=== PATIENT | female | born 1935 | race Caucasian/White ===

== ENCOUNTER → 2017-08-23 | Outpatient (CLI) | payer MEDICARE ==
--- NOTE | 2017-08-23 10:09 | WOMENS IMAGING REPORT ---
EXAM DESCRIPTION: BONE DENSITY HIP/SPINE COMPLETED DATE/TIME: 08/23/2017 9:46 am REASON FOR STUDY: OSTEOPOROSIS M81.0 AGE-RELATED OSTEOPOROSIS W/O CURRENT PATHOLOGICAL FRAC COMPARISON: June 2012 TECHNIQUE: Dual-Energy X-ray Absorptiometry (DEXA) of the AP Spine and Hip. LIMITATIONS: None. FINDINGS: LUMBAR SPINE: The bone mineral density (BMD) measured from L1-L4 in the AP projection correlates with a T-score of -2.1, which is osteopenia as defined by the World Health Organization. -8.7% decrease as compared to the previous study HIP: The bone mineral density (BMD) measured in the left hip correlates with a T-score of -2.0, which is o steopenia as defined by the World Health Organization. -8.7% decrease as compared to the previous st udy. IMPRESSION: 1. LUMBAR SPINE: Osteopenia 2. HIP: Osteopenia COMMENT: The World Health Organization defines low BMD as follows: T-score: Normal: Greater than -1.0 Osteopenia: Between -1.0 and -2.5 Osteoporosis: Less than -2.5 without fractures Established osteoporosis: Less than -2.5 with fractures In general, you may wish to consider: Diagnosis Treatment Follow-up DEXA Normal BMD Prevention 2-3 years Osteopenia Prevention/Therapy 1-2 years Osteoporosis Therapy Yearly TECHNICAL DOCUMENTATION: JOB ID: [id number]- All Rights Reserved Reading location - IP/workstation name: [email or web address]
== END ==
LOC: WI 09:28
PROVIDERS: ATTEND Internal Medicine
DX: M81.0 Age-related osteoporosis without current pathological fracture (principal)
CPT/HCPCS: 77080

== ENCOUNTER 2017-10-09 05:55 | Inpatient (IN) | payer MEDICARE ==
[2017-10-09] MEDS ORDERED: FENTANYL CITRATE INJ/PF 100 MCG/2 ML AMPUL IV ONE ×2 (06:16→12:37)
--- NOTE | 2017-10-09 06:17 | ER Document Report ---
ED Fall - General Stated Complaint: LEG PAIN Time Seen by Provider: 10/09/17 06:04 Notes: 82-year-old female to the emergency department chief complaint of left leg pain. Patient states that she began having spasms in her left leg. Stood up to rub her leg and her leg gave out. Landed on her left hip. Has pain in the left hip, left femur, left knee. Unable to bear weight. Was lying on the ground all night long. Was able to get to a phone early this morning at around 5 AM to call her family. She lives in a [id number] quarters. Ambulance arrived. Had external rotation noted of the left hip with shortening. Pain is rated as minimal as long as she does not move. Denies any other injuries. Did not hit her head. Denies any neck pain. Has one prior orthopedic surgery to the right knee. Dr. Hebert was her surgeon. Pain is throbbing. Nonradiating. Located to the left hip and left knee area. No other associated signs or symptoms. TRAVEL OUTSIDE OF THE [place] IN LAST 30 DAYS: No - HPI Occurred: This evening Where: Home - Related data Allergies/Adverse Reactions: aspirin [Aspirin] Allergy (Mild, Verified 08/01/15 12:34) Rash morphine [Morphine] Allergy (Mild, Verified 08/01/15 12:34) N/V Penicillins Allergy (Mild, Verified 08/01/15 12:34) Hives Past Medical History - General Information source: Patient - Social History Smoking Status: Never Smoker Cigarette use (# per day): No Frequency of alcohol use: None Drug Abuse: None Lives with: Family Family History: Reviewed & Not Pertinent - Past Medical History Cardiac Medical History: Reports: Hx Hypercholesterolemia Denies: Hx Atrial Fibrillation, Hx Congestive Heart Failure, Hx Coronary Artery Disease, Hx Heart Attack, Hx Hypertension, Hx Peripheral Vascular Disease , Hx Pulmonary Embolism, Hx Heart Murmur Pulmonary Medical History: Reports: Hx Pneumonia - 1950's Denies: Hx Asthma, Hx Bronchitis, Hx COPD, Hx Respiratory Failure, Hx Sleep Apnea, Hx Tuberculosis Neurological Medical History: Denies: Hx Seizures Endocrine Medical History: Denies: Hx Graves' Disease, Hx Hyperthyroidism, Hx Hypothyroidism Renal/ Medical History: Denies: Hx End Stage Renal Disease, Hx Kidney Stones, Hx Ovarian Cysts, Hx Peritoneal Dialysis, Hx Pelvic Inflammatory Disease Malignancy Medical History: Denies: Hx Breast Cancer, Hx Cervical Cancer, Hx Leukemia, Hx Lung Cancer, Hx Ovarian Cancer GI Medical History: Reports: Hx Gastroesophageal Reflux Disease. Denies: Hx Crohn's Disease, Hx Hepatitis, Hx Hiatal Hernia, Hx Irritable Bowel, Hx Liver Failure, Hx Pancreatitis, Hx Ulcer Musculoskeletal Medical History: Reports Hx Arthritis - Osteoarthritis and osteoporosis, Denies Hx Fibromyalgia, Denies Hx Muscular Dystrophy Psychiatric Medical History: Denies: Hx Bipolar Disorder, Hx Depression, Hx Post Traumatic Stress Disorder , Hx Schizophrenia Traumatic Medical History: Denies: Hx Fractures Infectious Medical History: Denies: Hx Hepatitis, Hx HIV Past Surgical History: Reports: Hx Appendectomy, Hx Cholecystectomy, Hx Gastric Bypass Surgery, Hx Hysterectomy, Hx Orthopedic Surgery - Right total knee replacement, 2013, Hx Tonsillectomy. Denies: Hx Bowel Surgery, Hx Section, Hx Colostomy, Hx Coronary Artery Bypass Graft, Hx Herniorrhaphy, Hx Mastectomy, Hx Open Heart Surgery, Hx Pacemaker, Hx Tubal Ligation - Immunizations Hx Diphtheria, Pertussis, Tetanus Vaccination: Yes Hx Pneumococcal Vaccination: 03/19/07 Review of Systems - Review of Systems Notes: Constitutional: denies: Chills, Diaphoresis, Fever, Malaise, Weakness EENT: denies: Eye discharge, Blurred vision, Tearing, Double vision, Nose congestion, Nose discharge, Throat swelling, Mouth pain Cardiovascular: denies: Palpitations, Heart racing, Orthopnea, Dyspnea. denies : Chest pain Respiratory: denies: Cough, does not hurt to breathe, denies any wheezing or Shortness of breath Gastrointestinal: denies: Abdominal pain, Diarrhea, Nausea, Vomiting, Black stools Genitourinary: denies: Burning, Dysuria, Discharge, Frequency, Flank pain, Hematuria Musculoskeletal: Denies any head or neck pain. Pain in the left hip is present. Pain in the left knee is present. Hematologic/Lymphatic: denies: Anemia, Easy bleeding, Easy bruising, Blood clots Neurological/Psychological: denies: Confusion, Dementia, Depression, Loss of consciousness Physical Exam - Vital signs Vitals: Temp Pulse Resp BP Pulse Ox 97.7 F 64 20 147/65 H 99 10/09/17 06:01 10/09/17 06:01 10/09/17 06:01 10/09/17 06:01 10/09/17 06:01 Interpretation: Normal - General General appearance: Appears well, Alert - HEENT Head: Normocephalic, Atraumatic Eyes: Normal Pupils: PERRL - Respiratory Respiratory status: No respiratory distress Chest status: Nontender Breath sounds: Normal Chest palpation: Normal - Cardiovascular Rhythm: Regular Heart sounds: Normal auscultation Murmur: No - Abdominal Inspection: Normal Distension: No distension Bowel sounds: Normal Tenderness: Nontender Organomegaly: No organomegaly - Back Back: Normal, Nontender - Extremities General upper extremity: Normal inspection, Nontender, Normal color, Normal ROM , Normal temperature General lower extremity: Other - There is external rotation noted to the left lower extremity with mild limp shortening of the left lower extremity with tenderness to palpation at the left hip and left knee. Shoulder: Normal Arm: Normal Ankle: Normal Foot: Normal - Neurological Neuro grossly intact: Yes Cognition: Normal Orientation: AAOx4 Cathy Coma Scale Eye Opening: Spontaneous Boyden Coma Scale Verbal: Oriented Boyden Coma Scale Motor: Obeys Commands Boyden Coma Scale Total: 15 Speech: Normal Motor strength normal: LUE, RUE, LLE, RLE Sensory: Normal - Psychological Associated symptoms: Normal affect, Normal mood - Skin Skin Temperature: Warm Skin Moisture: Dry Skin Color: Normal, Other - There is purplish discoloration noted to the bilateral feet which apparently is chronic Course - Re-evaluation Re-evalutation: 10/09/17 06:29 Concern at this time for possible hip fracture versus dislocation. X-rays ordered. Pain meds ordered. Preop labs and EKG ordered. 10/09/17 07:[address] Renteria with orthopedics. He would like for the hospitalist service to admit patient based on her age. He does do this particular surgery and thinks that he will be able to see her later today if not operated on on her today then may be tomorrow. Waiting on a callback from the hospitalist at this time. 10/09/17 08:40 Laboratory 10/09/17 10/09/17 10/09/17 07:02 07:02 07:02 WBC 9.0 RBC 3.85 Hgb 11.9 L Hct 34.8 L MCV 91 MCH 31.1 MCHC 34.3 RDW 13.9 Plt Count 263 Seg Neutrophils % 88.9 H Lymphocytes % 5.9 L Monocytes % 5.0 Eosinophils % 0.0 Basophils % 0.2 Absolute Neutrophils 8.0 Absolute Lymphocytes 0.5 Absolute Monocytes 0.5 Absolute Eosinophils 0.0 Absolute Basophils 0.0 PT 14.4 INR 1.06 APTT 26.3 Sodium 144.0 Potassium 4.3 Chloride 110 H Carbon Dioxide 25 Anion Gap 9 BUN 26 H Creatinine 0.65 Est GFR ( Amer) > 60 Est GFR (Non-Af Amer) > 60 Glucose 147 H Calcium 9.0 Total Bilirubin 1.0 Direct Bilirubin 0.1 Neonat Total Bilirubin Not Reportable Neonat Direct Bilirubin Not Reportable Neonat Indirect Bili Not Reportable AST 29 ALT 22 Alkaline Phosphatase 107 Creatine Kinase 69 Total Protein 6.9 Albumin 4.0 Hip X-Ray 10/09/17 06:15 IMPRESSION: 1. Acute comminuted mildly displaced intertrochanteric fracture of the left femur. 2010 [employer]- All Rights Reserved Knee X-Ray 10/09/17 06:15 IMPRESSION: No acute fracture or dislocation. 2010 [employer]- All Rights Reserved - Vital Signs Vital signs: Temp Pulse Resp BP Pulse Ox 97.7 F 64 20 147/65 H 99 10/09/17 06:01 10/09/17 06:01 10/09/17 06:01 10/09/17 06:01 10/09/17 06:01 - Laboratory Result Diagrams: 10/09/17 07:02 10/09/17 07:02 Laboratory results interpreted by id: 10/09/17 10/09/17 07:02 07:02 Hgb 11.9 L Hct 34.8 L Seg Neutrophils % 88.9 H Lymphocytes % 5.9 L Chloride 110 H BUN 26 H Glucose 147 H - EKG Interpretation by Vt EKG shows normal: Sinus rhythm, Intervals, QRS Complexes, ST-T Waves [place]/QRS: Left axis deviation Voltage: Consistant with LVH Discharge - Discharge Clinical Impression: Intertrochanteric fracture of left hip Qualifiers: Encounter type: initial encounter Fracture type: closed Fracture alignment: displaced Qualified Code(s): S72.142A - Displaced intertrochanteric fracture of left femur, initial encounter for closed fracture Condition: Good Disposition: ADMITTED INPATIENT Admitting Provider: [facility] Alisa Gilliam Unit Admitted: Surgical Floor Referrals: JOSEPH SUMMERS MD [Primary Care Provider] - Follow up as needed
--- NOTE | 2017-10-09 07:12 | RADIOLOGY REPORT (SQ) ---
EXAM DESCRIPTION: XR HIP 2 OR MORE VIEWS COMPLETED DATE/TME: 10/09/2017 06:15 CLINICAL HISTORY: 82 years, Female, fall, deformity COMPARISON: None. FINDINGS: Single view of the pelvis with 2 views of the left hip. Acute comminuted mildly displaced intertrochanteric fracture of the left femur. Osteopenia. Right hip demonstrates no acute abnormalities. Pelvis is intact. Visualized pelvic soft tissues are unremarkable. IMPRESSION: 1. Acute comminuted mildly displaced intertrochanteric fracture of the left femur. 2011 [employer]- All Rights Reserved
[2017-10-09 07:16] LABS: ABSOLUTE LYMPHOCYTES (AUTO) 0.5 10^3/uL (0.5-4.7); ABSOLUTE MONOCYTES (AUTO) 0.5 10^3/uL (0.1-1.4); BASOPHILS % (AUTO) 0.2 % (0-2); HEMATOCRIT 34.8 % (36.0-47.0); HEMOGLOBIN 11.9 g/dL (12.0-15.5); LYMPHOCYTES % (AUTO) 5.9 % (13-45); MEAN CORPUSCULAR HEMOGLOBIN 31.1 pg (27.0-33.4); MEAN CORPUSCULAR HGB CONC 34.3 g/dL (32.0-36.0); MEAN CORPUSCULAR VOLUME 91 fl (80-97); PLATELET COUNT 263 10^3/uL (150-450); RED BLOOD COUNT 3.85 10^6/uL (3.72-5.28); RED CELL DISTRIBUTION WIDTH 13.9 % (11.5-14.0); SEGMENTED NEUTROPHILS % (AUTO) 88.9 % (42-78); TOTAL CELLS COUNTED % (AUTO) 100 %
--- NOTE | 2017-10-09 07:17 | RADIOLOGY REPORT (SQ) ---
EXAM DESCRIPTION: XR KNEE 1-2 VIEWS COMPLETED DATE/TME: 10/09/2017 06:15 CLINICAL HISTORY: 82 years, Female, fall, deformity COMPARISON: None. FINDINGS: 2 views of the left knee. No acute fracture or dislocation. Severe 3 compartment joint space narrowing and marginal osteophytosis. No definite joint effusion. Atherosclerotic vascular calcification. IMPRESSION: No acute fracture or dislocation. 2010 [employer]- All Rights Reserved
[2017-10-09 07:25] LABS: INTERNATIONAL RATION (INR) 1.06; PARTIAL THROMBOPLASTIN TIME 26.3 SEC (23.5-35.8); PROTHROMBIN TIME 14.4 SEC (11.4-15.4)
[2017-10-09 07:35] LABS: ALANINE AMINOTRANSFERASE 22 U/L (9-52); ALKALINE PHOSPHATASE 107 U/L (38-126); ANION GAP 9 (5-19); ASPARTATE AMINO TRANSFERASE 29 U/L (14-36); BILIRUBIN,DIRECT 0.1 mg/dL (0.0-0.4); BLOOD UREA NITROGEN 26 mg/dL (7-20); CARBON DIOXIDE 25 mmol/L (22-30); CHLORIDE 110 mmol/L (98-107); CREATINE KINASE 69 U/L (30-135); GLUCOSE 147 mg/dL (75-110); POTASSIUM 4.3 mmol/L (3.6-5.0); TOTAL PROTEIN 6.9 g/dL (6.3-8.2)
--- NOTE | 2017-10-09 08:00 | EKG REPORT ---
SEVERITY:- ABNORMAL ECG - SINUS RHYTHM FIRST DEGREE AV BLOCK LEFT VENTRICULAR HYPERTROPHY : Confirmed by: Lida Nuno MD 09-Oct-2017 07:59:12
--- NOTE | 2017-10-09 08:18 | PDOC CONSULTATION ---
History of Present Illness Admission Date/PCP: JOSEPH SUMMERS MD Patient complains of: Left hip pain History of Present Illness: ROBERT DESAI is a 82 year old female who sustained a fall this morning while she was walking around. She states she will can from sleep with cramps in her legs and was attempting to walk them out when she unfortunately tripped and fell onto her left hip. Patient had been brought into the emergency room due to the inability to weight-bear. Patient states pain is worse with motion. Denies numbness or tingling. Pain 8/10. Past Medical History Cardiac Medical History: Reports: Hyperlipidema Denies: Atrial Fibrillation, Congestive Heart Failure, Coronary Artery Disease, Myocardial Infarction, Hypertension, Peripheral Vascular Disease, Pulmonary Embolism, Heart Murmur Pulmonary Medical History: Reports: Pneumonia - 1950s Denies: Asthma, Bronchitis, Chronic Obstructive Pulmonary Disease (COPD), Respiratory Failure, Sleep Apnea, Tuberculosis Neurological Medical History: Denies: Seizures Endocrine Medical History: Denies: Hyperthyroidism, Hypothyroidism Renal/ Medical History: Denies: End Stage Renal Disease Malignancy Medical History: Denies: Breast Cancer, Cervical Cancer, Leukemia, Lung Cancer, Ovarian Cancer GI Medical History: Reports: Gastroesophageal Reflux Disease Denies: Crohn's Disease, Hepatitis, Hiatal Hernia Musculoskeltal Medical History: Reports: Arthritis - Osteoarthritis and osteoporosis Denies: Fibromyalgia Psychiatric Medical History: Denies: Bipolar Disorder, Depression, Post Traumatic Stress Disorder Hematology: Denies: Anemia, Hemophilia, Sickle Cell Disease Infectious Medical History: Denies: HIV Past Surgical History Past Surgical History: Reports: Appendectomy, Cholecystectomy, Gastric Bypass Surgery, Hysterectomy, Orthopedic Surgery - Right total knee replacement, 2013, Tonsillectomy Denies: Amputation, Section, Colostomy, Coronary Artery Bypass Graft , Herniorrhaphy, Mastectomy, Pacemaker, Tubal Ligation Social History Lives with: Family Smoking Status: Never Smoker Hx Prescription Drug Abuse: No Family History Family History: Reviewed & Not Pertinent Parental Family History Reviewed: No Children Family History Reviewed: No Sibling(s) Family History Reviewed.: No Medication/Allergy Home Medications: Calcium Carb/Vit D3/Minerals [Caltrate 600+D Plus Tab Chew] 1 each PO 03/03/11 Multivitamins W-Minerals/Lut [Centrum Silver Tablet] 1 each PO 03/03/11 Omeprazole [Prilosec] 40 mg PO PRN 03/03/11 Simvastatin [Zocor] 20 mg PO QHS 03/03/11 Tramadol HCl/Acetaminophen [Ultracet Tablet] 1 each PO PRN 03/03/11 Oxycodone HCl [Oxycodone HCl 10 MG Tablet] 10 mg PO Q6H PRN 03/28/12 Rivaroxaban [Xarelto 10 mg Tablet] 10 mg PO QHS 03/28/12 Allergies/Adverse Reactions: aspirin [Aspirin] Allergy (Mild, Verified 08/01/15 12:34) Rash morphine [Morphine] Allergy (Mild, Verified 08/01/15 12:34) N/V Penicillins Allergy (Mild, Verified 08/01/15 12:34) Hives Review of Systems Constitutional: ABSENT: chills, fever(s), headache(s), weight gain, weight loss Eyes: ABSENT: visual disturbances Ears: ABSENT: hearing changes Cardiovascular: ABSENT: chest pain, dyspnea on exertion, edema, orthropnea, palpitations Respiratory: ABSENT: cough, hemoptysis Gastrointestinal: ABSENT: abdominal pain, constipation, diarrhea, hematemesis, hematochezia, nausea, vomiting Genitourinary: ABSENT: dysuria, hematuria Musculoskeletal: PRESENT: as per HPI Integumentary: ABSENT: rash, wounds Neurological: ABSENT: abnormal gait, abnormal speech, confusion, dizziness, focal weakness, syncope Psychiatric: ABSENT: anxiety, depression, homidical ideation, suicidal ideation Endocrine: ABSENT: cold intolerance, heat intolerance, menstrual abnormalities, polydipsia, polyuria Hematologic/Lymphatic: ABSENT: easy bleeding, easy bruising, lymphadenopathy Physical Exam Vital Signs: Temp Pulse Resp BP Pulse Ox 97.7 F 64 20 147/65 H 99 10/09/17 06:01 10/09/17 06:01 10/09/17 06:01 10/09/17 06:01 10/09/17 06:01 Intake & Output 10/08/17 10/09/17 10/10/17 06:59 06:59 06:59 Weight 86.183 kg General appearance: PRESENT: no acute distress, well-developed, well-nourished Head exam: PRESENT: atraumatic, normocephalic Eye exam: PRESENT: conjunctiva pink, EOMI, PERRLA. ABSENT: scleral icterus Ear exam: PRESENT: normal external ear exam Mouth exam: PRESENT: moist, tongue midline Neck exam: PRESENT: full ROM. ABSENT: carotid bruit, JVD, lymphadenopathy, thyromegaly Cardiovascular exam: PRESENT: RRR. ABSENT: diastolic murmur, rubs, systolic murmur Pulses: PRESENT: normal dorsalis pedis pul, +2 pedal pulses bilateral Vascular exam: PRESENT: normal capillary refill GI/Abdominal exam: PRESENT: normal bowel sounds, soft. ABSENT: distended, guarding, mass, organolmegaly, rebound, tenderness Rectal exam: PRESENT: deferred Musculoskeletal exam: PRESENT: other - Left lower extremity: Shortened externally rotated. Positive logroll. No evidence of open wound. Intact plantar flexion/dorsiflexion. No sensory deficits. Dorsalis pedis pulse 2+. Stasis dermatitis. Neurological exam: PRESENT: alert, awake, oriented to person, oriented to place , oriented to time, oriented to situation, CN II-XII grossly intact. ABSENT: motor sensory deficit Psychiatric exam: PRESENT: appropriate affect, normal mood. ABSENT: homicidal ideation, suicidal ideation Skin exam: PRESENT: dry, intact, warm. ABSENT: cyanosis, rash Results Laboratory Results: 10/09/17 07:02 10/09/17 07:02 10/09/17 10/09/17 07:02 07:02 WBC 9.0 RBC 3.85 Hgb 11.9 L Hct 34.8 L MCV 91 MCH 31.1 MCHC 34.3 RDW 13.9 Plt Count 263 Seg Neutrophils % 88.9 H Lymphocytes % 5.9 L Monocytes % 5.0 Eosinophils % 0.0 Basophils % 0.2 Absolute Neutrophils 8.0 Absolute Lymphocytes 0.5 Absolute Monocytes 0.5 Absolute Eosinophils 0.0 Absolute Basophils 0.0 Sodium 144.0 Potassium 4.3 Chloride 110 H Carbon Dioxide 25 Anion Gap 9 BUN 26 H Creatinine 0.65 Est GFR ( Amer) > 60 Est GFR (Non-Af Amer) > 60 Glucose 147 H Calcium 9.0 Total Bilirubin 1.0 AST 29 ALT 22 Alkaline Phosphatase 107 Total Protein 6.9 Albumin 4.0 10/09/17 07:02 Creatine Kinase 69 Impressions: Hip X-Ray 10/09/17 06:15 IMPRESSION: 1. Acute comminuted mildly displaced intertrochanteric fracture of the left femur. 2010 [employer]- All Rights Reserved Knee X-Ray 10/09/17 06:15 IMPRESSION: No acute fracture or dislocation. 2010 [employer]- All Rights Reserved Status: Image reviewed by me - I have reviewed patient's radiographs of the left hip and knee. Left hip demonstrates comminuted intertrochanteric hip fracture with varus angulation. Advanced generative changes of the left knee also noted no evidence of acute abnormality Assessment & Plan - Diagnosis (1) Fracture, intertrochanteric, left femur Qualifiers: Encounter type: initial encounter Fracture type: closed Fracture alignment: displaced Qualified Code(s): S72.142A - Displaced intertrochanteric fracture of left femur, initial encounter for closed fracture Is this a current diagnosis for this admission?: Yes Plan: Patient sustained a left intertrochanteric fracture. Today we discussed treatment options including operative versus nonoperative intervention. Given the fact patient is a community ambulator with good mentation I have recommended operative intervention. Plan will be to proceed with operative treatment versus pending medical optimization. Risks include anesthetic complications, excessive bleeding, infection, injury to surrounding nerves, vessels and tendons, bruising, healing difficulties, scar formation, posttraumatic arthritis and any unforseen complication. Patient has verbalized understanding consented for the procedure.
[2017-10-09] MEDS ORDERED: RINGERS SOLUTION,LACTATED 1,000 ML IV PRN (09:59)
[2017-10-09] MEDS ORDERED: DEXTROSE 40% GEL 15 GM TUBE PO PRN ×2 (09:59)
[2017-10-09] MEDS ORDERED: GLUCAGON,HUMAN RECOMB 1 MG INJ SUBCUT PRN (09:59)
[2017-10-09] MEDS ORDERED: DEXTROSE 50%-WATER 25 GM/50 ML DISP.SYRIN IV PRN ×2 (09:59)
[2017-10-09] MEDS ORDERED: SUCCINYLCHOLINE CHLORIDE INJ 200 MG/10 ML VIAL ONE (10:23)
--- NOTE | 2017-10-09 10:54 | RADIOLOGY REPORT (SQ) ---
EXAM DESCRIPTION: CHEST SINGLE VIEW COMPLETED DATE/TIME: 10/09/2017 10:35 am REASON FOR STUDY: pre-op COMPARISON: February 2012 EXAM PARAMETERS: NUMBER OF VIEWS: One view. TECHNIQUE: Single frontal radiographic view of the chest acquired. RADIATION DOSE: NA LIMITATIONS: None. FINDINGS: LUNGS AND PLEURA: No opacities, masses or pneumothorax. No pleural effusion. Stable pulmo nary nodule is identified projected in the left mid lung field. MEDIASTINUM AND HILAR STRUCTURES: No masses. Contour normal. HEART AND VASCULAR STRUCTURES: Cardiac silhouette is enlarged. BONES: No acute findings. HARDWARE: None in the chest. OTHER: No other significant finding. IMPRESSION: Cardiomegaly. No acute consolidations are identified. Other findings as noted above TECHNICAL DOCUMENTATION: JOB ID: [id number] [employer]- All Rights Reserved Reading location - IP/workstation name: [email or web address]
[2017-10-09 11:37] LABS: CREATINE KINASE MB 1.14 ng/mL (<4.55)
[2017-10-09 11:38] LABS: TROPONIN I < 0.012 ng/mL
--- NOTE | 2017-10-09 13:08 | Progress Note ---
Provider Note Provider Note: Hospitalist consulted by Orthopedic Surgeon, Dr. Renteria, for surgical clearance. The patient has no PMH other than HLD (on statin) and GERD (on prevacid). EKG shows NSR, no acute ischemia or infarction Cardiac enzymes normal BNP 524 Coags normal No significant abnormalities on Chemistry or CBC CXR only shows mild cardiomegaly, no other pathology Vital signs are all within normal range At this time, the patient does not require any further pre-op workup. She is cleared for surgery. There are no medical issues for the hospitalist to manage. Discussed this with Dr. Renteria. If post-op issues arise, the hospitalist service will be happy to collaborate.
[2017-10-09] MEDS: FENTANYL CITRATE INJ/PF 100 MCG/2 ML AMPUL IV PRN (15:27)
--- NOTE | 2017-10-09 16:25 | XCELERA REPORT ---
[address] [address] Transthoracic Echocardiogram Report Name: ROBERT DESAI Age: 82 yrs Gender: Female : 1935 Patient Status: Inpatient Patient Location: [address] [place] [address] Study Date: 10/09/2017 03:29 PM Procedure: A complete two-dimensional transthoracic echocardiogram was performed (2D, M-mode, spectral and color flow Doppler). The study was technically difficult with many images being suboptimal in quality. Reason For Study: preop of per Dr. Mejia Ordering Physician: SYLVIE DEWITT Performed By: Sindy Gilliland Interpretation Summary The left ventricular ejection fraction is normal. There is mild concentric left ventricular hypertrophy. The left ventricle is grossly normal size. Doppler measurements suggest pseudonormalized left ventricular relaxation, which is associated with grade II/IV or mild to moderate diastolic dysfunction Wall motion cannot be accurately commented on, but no definite regional wall motion abnormalities noted. The right ventricle is grossly normal size. The right ventricular systolic function is normal. There is no mitral valve stenosis. There is a trace amount of mitral regurgitation There is mild aortic stenosis There is a peak gradient of 16-20 mm of Hg. No aortic regurgitation is present. There is no tricuspid stenosis. There is a trace or physiologic amount of tricuspid regurgitation Tricuspid regurgitation jet envelope not well defined to measure RV systolic pressure accurately. The aortic root is not well visualized but is probably normal size. The inferior vena cava was not well visualized There is no pericardial effusion. MMode/2D Measurements & Calculations RVDd: 3.3 cm LVIDd: 4.6 cm FS: 40.1 % Ao root diam: 2.7 cm IVSd: 1.1 cm LVIDs: 2.8 cm EDV(Teich): 98.5 ml Ao root area: 5.7 cm2 LVPWd: 1.0 cm ESV(Teich): 28.8 ml LA dimension: 4.1 cm EF(Teich): 70.8 % LVOT diam: 1.8 cm LVOT area: 2.6 cm2 Doppler Measurements & Calculations MV E max vianey: MV P1/2t max vianey: Ao V2 max: LV V1 max P.6 cm/sec 107.6 cm/sec 197.8 cm/sec 5.4 mmHg MV A max vianey: MV P1/2t: 83.9 msec Ao max PG: LV V1 mean P.2 cm/sec 15.7 mmHg 3.2 mmHg MV E/A: 0.89 MVA(P1/2t): 2.6 cm2 Ao V2 mean: LV V1 max: MV dec slope: 148.8 cm/sec 116.0 cm/sec 375.8 cm/sec2 Ao mean PG: LV V1 mean: MV dec time: 0.25 sec 9.8 mmHg 84.3 cm/sec Ao V2 VTI: 45.6 cmLV V1 VTI: 27.9 cm LEI(I,D): 1.6 cm2 LEI(V,D): 1.5 cm2 SV(LVOT): 72.6 ml PA V2 max: TR max vianey: 133.8 cm/sec 239.5 cm/sec PA max P.2 mmHg TR max P.9 mmHg Left Ventricle The left ventricle is grossly normal size. There is mild concentric left ventricular hypertrophy. The left ventricular ejection fraction is normal. Doppler measurements suggest pseudonormalized left ventricular relaxation, which is associated with grade II/IV or mild to moderate diastolic dysfunction. Wall motion cannot be accurately commented on, but no definite regional wall motion abnormalities noted. Right Ventricle The right ventricle is grossly normal size. There is normal right ventricular wall thickness. The right ventricular systolic function is normal. Atria The right atrium is normal in size. The left atrium is mildly dilated. Interarterial septum not well visualized and not well dopplered. Cannot comment on ASD/PFO presence. Mitral Valve The mitral valve is grossly normal. There is no mitral valve stenosis. There is a trace amount of mitral regurgitation. Aortic Valve The aortic valve is not well visualized secondary to technical limitations. There is mild aortic stenosis. There is a peak gradient of 16-20 mm of Hg. No aortic regurgitation is present. Tricuspid Valve The tricuspid valve is not well visualized secondary to technical limitations. There is no tricuspid stenosis. There is a trace or physiologic amount of tricuspid regurgitation. Tricuspid regurgitation jet envelope not well defined to measure RV systolic pressure accurately. Pulmonic Valve The pulmonic valve is not well visualized. Great Vessels The aortic root is not well visualized but is probably normal size. The inferior vena cava was not well visualized. Effusions There is no pericardial effusion. : SYLVIE DEWITT > Wilfred Mejia
[2017-10-09] MEDS ORDERED: CLINDAMYCIN 600 MG/D5W RTU 600 MG/50 ML RTUPB IV ONE (16:54)
[2017-10-09] MEDS ORDERED: FENTANYL CITRATE INJ/PF 100 MCG/2 ML AMPUL ONE (17:02)
[2017-10-09] MEDS ORDERED: MIDAZOLAM 2 MG/2 ML INJ ONE (17:02)
[2017-10-09] MEDS ORDERED: PROPOFOL INJ 200 MG/20 ML VIAL IV ONE ×2 (17:03→17:13)
[2017-10-09] MEDS ORDERED: HYDROMORPHONE HCL INJ/PF 2 MG/ML AMPULE ONE (17:03)
[2017-10-09] MEDS ORDERED: KETAMINE HCL INJ 500 MG/10 ML VIAL ONE (17:04)
[2017-10-09] MEDS ORDERED: SUGAMMADEX SODIUM 200 MG/2 ML SDV IV ONE (17:04)
[2017-10-09] MEDS ORDERED: ACETAMINOPHEN 1,000 MG/100 ML RTUPB IV ONE (17:04)
--- NOTE | 2017-10-09 17:22 | PDOC H&P ---
History of Present Illness Admission Date/PCP: 10/09/17 09:03 JOSEPH SUMMERS MD Patient complains of: L HIP PAIN History of Present Illness: ROBERT DESAI is a 82 year old female who presented to the emergency department following a mechanical fall. Patient reports she was experiencing a LLE cramp last night. She was attempting to "walk it off" when she experienced a mechanical fall and landed on her left hip. She denies head trauma or LOC. Denies dizziness prior to falling. The patient was unable to stand after she fell, and she remained on the ground for an unknown amount of time ( approximately 6 hours). She was able to crawl to the phone and call her daughter , who then called EMS. PMH includes hyperlipidemia and GERD Upon presentation to [facility] the patient's complained of LLE pain. X-ray of the left hip demonstrates acute comminuted mildly displaced intertrochanteric fracture of the left femur. Orthopedic surgery was consulted. Her pain was treated with IV fentanyl. Upon assessment, the patient is awake, alert and oriented. She is comfortably resting in bed on room air. She endorses 3/5 LLE pain, but states that it is tolerable. The patient has no other complaints, she denies headache or neck pain, chest or back pain, dizziness or blurry vision. The patient's LLE is externally rotated and shortened. +2 DP and PT pulses. No edema to the LLE. Mild discoloration to bilateral lower extremities consistent with peripheral vascular disease. EKG demonstrates NSR, no evidence of acute infarct or ischemia. Troponin<0.012. CK 69. BNP 579. CXR demonstrates enlarged cardiac silhouette, positive for cardiomegaly. Admit to hospitalist service for medical management, orthopedic surgery consulted for surgical repair of left hip. Past Medical History Cardiac Medical History: Reports: Hyperlipidema Denies: Atrial Fibrillation, Congestive Heart Failure, Coronary Artery Disease, Myocardial Infarction, Hypertension, Peripheral Vascular Disease, Pulmonary Embolism, Heart Murmur Pulmonary Medical History: Reports: Pneumonia - 1950's Denies: Asthma, Bronchitis, Chronic Obstructive Pulmonary Disease (COPD), Respiratory Failure, Sleep Apnea, Tuberculosis Neurological Medical History: Denies: Seizures Endocrine Medical History: Denies: Hyperthyroidism, Hypothyroidism Renal/ Medical History: Denies: End Stage Renal Disease Malignancy Medical History: Denies: Breast Cancer, Cervical Cancer, Leukemia, Lung Cancer, Ovarian Cancer GI Medical History: Reports: Gastroesophageal Reflux Disease Denies: Crohn's Disease, Hepatitis, Hiatal Hernia Musculoskeltal Medical History: Reports: Arthritis - Osteoarthritis and osteoporosis Denies: Fibromyalgia Psychiatric Medical History: Denies: Bipolar Disorder, Depression, Post Traumatic Stress Disorder Hematology: Denies: Anemia, Hemophilia, Sickle Cell Disease Infectious Medical History: Denies: HIV Past Surgical History Past Surgical History: Reports: Appendectomy, Cholecystectomy, Gastric Bypass Surgery, Hysterectomy, Orthopedic Surgery - Right total knee replacement, 2013 L elbow fracture repair Social History Information Source: Patient Lives with: Family Smoking Status: Former Smoker Last Time Smoked: 50 YEARS AGO Frequency of Alcohol Use: Rare Hx Recreational Drug Use: No Hx Prescription Drug Abuse: No - Advance Directive Resuscitation Status: Full Code Family History Family History: Reviewed & Not Pertinent Parental Family History Reviewed: No Children Family History Reviewed: No Sibling(s) Family History Reviewed.: No Medication/Allergy Home Medications: Multivitamins W-Minerals/Lut [Centrum Silver Tablet] 1 each PO DAILY 03/03/11 Simvastatin [Zocor] 20 mg PO QHS 03/03/11 Cetirizine HCl [Zyrtec] 10 mg PO DAILY 10/09/17 Naproxen Sod/Diphenhydramine [Aleve Pm Caplet] 1 each PO HSP PRN 10/09/17 Omeprazole 20 mg PO DAILY 10/09/17 Tramadol HCl [Ultram 50 mg Tablet] 50 mg PO Q8HP PRN 10/09/17 Vit A/C/E/Zinc/Selenium/Copper [Vision Formula Tablet] 1 each PO DAILY 10/09/17 Allergies/Adverse Reactions: aspirin [Aspirin] Allergy (Mild, Verified 08/01/15 12:34) Rash morphine [Morphine] Allergy (Mild, Verified 08/01/15 12:34) N/V Penicillins Allergy (Mild, Verified 08/01/15 12:34) Hives Review of Systems All systems: reviewed and no additional remarkable complaints except as stated Physical Exam Vital Signs: Temp Pulse Resp BP Pulse Ox 98.1 F 73 14 137/61 H 100 10/09/17 14:01 10/09/17 14:01 10/09/17 14:01 10/09/17 14:01 10/09/17 14:01 General appearance: PRESENT: no acute distress Eye exam: PRESENT: conjunctiva pink Mouth exam: PRESENT: moist Neck exam: PRESENT: full ROM Respiratory exam: PRESENT: clear to auscultation donna, symmetrical, unlabored Cardiovascular exam: PRESENT: +S1, +S2 Pulses: PRESENT: normal radial pulses, normal dorsalis pedis pul Vascular exam: PRESENT: normal capillary refill GI/Abdominal exam: PRESENT: normal bowel sounds, soft. ABSENT: tenderness Rectal exam: PRESENT: deferred Extremities exam: PRESENT: other - LLE external rotation and shortening. ABSENT : full ROM Musculoskeletal exam: ABSENT: ambulatory, full ROM Neurological exam: PRESENT: alert, awake, oriented to person, oriented to place , oriented to time, oriented to situation Psychiatric exam: PRESENT: appropriate affect Skin exam: PRESENT: dry, intact, normal color Results Laboratory Results: 10/09/17 10:50 Blood Type A POSITIVE Antibody Screen NEGATIVE 10/09/17 10/09/17 10:50 10:50 Creatine Kinase 113 CK-MB (CK-2) 1.14 Troponin I < 0.012 Impressions: Chest X-Ray 10/09/17 00:00 IMPRESSION: Cardiomegaly. No acute consolidations are identified. Other findings as noted above Hip X-Ray 10/09/17 06:15 IMPRESSION: 1. Acute comminuted mildly displaced intertrochanteric fracture of the left femur. 2010 [employer]- All Rights Reserved Knee X-Ray 10/09/17 06:15 IMPRESSION: No acute fracture or dislocation. 2010 [employer]- All Rights Reserved Status: Imported from PACS Assessment & Plan - Diagnosis (1) Fracture, intertrochanteric, left femur Qualifiers: Encounter type: initial encounter Fracture type: closed Fracture alignment: displaced Qualified Code(s): S72.142A - Displaced intertrochanteric fracture of left femur, initial encounter for closed fracture Is this a current diagnosis for this admission?: Yes Plan: Mechanical fall at home. Patient denies LOC. X-ray left hip demonstrates acute comminuted mildly displaced intertrochanteric fracture of the left femur Orthopedic surgery consulted, plan for surgery within 24 hours As needed fentanyl for pain control (allergy to morphine) Awaiting ECHOcardiogram to complete preop workup Will require PT/OT and acute rehab following surgery (2) HLD (hyperlipidemia) Qualifiers: Hyperlipidemia type: unspecified Qualified Code(s): E78.5 - Hyperlipidemia , unspecified Is this a current diagnosis for this admission?: Yes Plan: History of hyperlipidemia Continue home dose atorvastatin (3) Cardiomegaly Is this a current diagnosis for this admission?: Yes Plan: Patient denies history of heart disease Cardiomegaly seen on CXR Plan for echocardiogram for pre-op clearance - Time Time Spent: 30 to 50 Minutes Medications reviewed and adjusted accordingly: Yes Anticipated discharge: SNF - Inpatient Certification Based on my medical assessment, after consideration of the patient's comorbidities, presenting symptoms, or acuity I expect that the services needed warrant INPATIENT care.: Yes I certify that my determination is in accordance with my understanding of Medicare's requirements for reasonable and necessary INPATIENT services [42 CFR 412.3e].: Yes Medical Necessity: Need for Surgery, Risk of Complication if Not Cared For in Hospital - Plan Summary Plan Summary: ADMIT FOR L HIP REPAIR BY ORTHO SURGERY
[2017-10-09] MEDS ORDERED: FENTANYL CITRATE INJ/PF 100 MCG/2 ML AMPUL IV PRN ×3 (18:33)
[2017-10-09] MEDS ORDERED: PROMETHAZINE HCL INJ 25 MG/1 ML VIAL IV PRN (18:33)
[2017-10-09] MEDS ORDERED: DIPHENHYDRAMINE HCL 50 MG/ML VIAL IV PRN ×2 (18:33→19:15)
--- NOTE | 2017-10-09 19:19 | Operative Report ---
Operative Report DATE OF SURGERY: 10/09/17 PREOPERATIVE DIAGNOSIS: Left Intertochanteric Fracture POSTOPERATIVE DIAGNOSIS: Same OPERATION: Cephalomedullary Nail Left Intertrochanteric Fracture SURGEON: MELONY PINEDO ANESTHESIA: GA COMPLICATIONS: None ESTIMATED BLOOD LOSS: 200cc PROCEDURE: Indication for above procedure: 82-year-old female who is a community ambulator sustained a fall onto her left hip when she developed cramps early this morning. She was brought to emergency room x-rays demonstrated intertrochanteric fracture. Upon consultation patient was deemed medically stable for operative intervention however anesthesia did order a echocardiogram which was found to be within acceptable limits for operative treatment. Risks and benefits of the surgical procedure were explained to the patient she verbalized understanding consented for the procedure. Procedure detail: Patient was seen and evaluated in the preoperative holding area. The LEFT lower extremity was initialized and marked. Patient received 600 mg of clindamycin IV for bacterial prophylaxis. Patient was taken back to the operative room where transferred operative table. Patient was placed under spinal anesthesia. Once adequate anesthetized he was carefully placed onto the hip positioner the nonoperative lower extremity and bilateral upper extremities were carefully padded and the peroneal nerve was padded and on the nonoperative extremity. The operative extremity was placed in a traction along with adduction and internal rotation. A surgical team debriefing was performed ensuring all instrumentation was available, the surgical procedure was discussed with possible concerns reviewed. A timeout was done identifying correct patient, procedure and extremity everyone in attendance agree with this and verbalized no concerns. Reduction maneuver with the use of the hip traction table were done and C-arm fluoroscopy was used to confirm optimal reduction of the intertrochanteric fracture. Once this was confirmed the lower extremity was prepped with chlor prep and draped in a sterile fashion. At this point a skin incision was made proximal to the greater trochanter. The guidewire was placed onto the tip of the trochanter advanced down to the level of the lesser trochanter. AP and lateral fluoroscopy was used to confirm appropriate placement of the guidewire. The skin incision was then extended and the underlying fascia opened up carefully to the tip of the greater trochanter. The entry reamer was then used and advanced to the level of the lesser trochanter. Given the subtrochanteric/reverse obliquity configuration of the patient's fracture decision was made to utilize a long gamma nail. The ball-tipped guidewire was placed and passed down to the distal femur. A 400 mm measurement was determined. The femoral shaft was then reamed up to a 13 mm and thus a 11 mm x 400 mm 125 gamma nail was passed past the fracture site into the femoral shaft. Radiographs were obtained along the distal femur to confirm adequate length. Then turned my attention to the compression screw fixation in the femoral head. The trochars were advanced to the skin, a skin incision was made, careful dissection down to the fascia to the lateral femoral cortex was then partaken. The guidewire was then used and placed in the center center position with the tip apex distance less than 25 mm. Once this position was obtained the size of the compression screw was measured. AP and lateral fluoroscopy used to confirm appropriate placement of our guide wire. The step reamer was used to drill up through the femoral neck and head. I then carefully advanced the compression screw into position. AP and lateral fluoroscopy was done to confirm appropriate placement of the compression screw this was then locked into position proximally. The compression screw was then disengaged from its mounting device and the guidewire was removed. Lastly proceeded with locking of the nail distally. Perfect circles were obtained with C arm fluoroscopy. Small stab incision was made over the static hole blunt dissection was performed a size 45 mm distal screw was placed. A second small stab incision was made distally at the dynamic hole. Blunt dissection was again performed to the lateral cortex near 4 cortices drilled and a 57.5 mm distal screw was placed. Once adequate placement of the screws were confirmed with AP and lateral the wounds were copiously irrigated with normal saline. The deep tissues were closed with 0 Vicryl suture, subcutaneous tissues were closed with 3-0 Monocryl suture. The skin was closed a running 3-0 subcuticular Monocryl suture and reinforced with Dermabond & Steri-Strips. A dressing was placed. Sponge counts, instrument counts and needle counts were correct. Patient was then transferred from the operating room table to the operating room stretcher. The was no intraoperative complications patient tolerated procedure well was stable to PACU. Implants used: Karina 11 x 400 mm 125 long gamma Nail with a 100 mm compression screw Postoperative plan: Patient will begin physical therapy on postop day #1 with Xarelto daily.
[2017-10-10] MEDS ORDERED: ACETAMINOPHEN 1,000 MG/100 ML RTUPB IV ONE (01:15)
[2017-10-10 06:12] LABS: HEMATOCRIT 26.1 % (36.0-47.0); MEAN CORPUSCULAR HEMOGLOBIN 31.7 pg (27.0-33.4); MEAN CORPUSCULAR VOLUME 91 fl (80-97); PLATELET COUNT 187 10^3/uL (150-450); RED BLOOD COUNT 2.89 10^6/uL (3.72-5.28); RED CELL DISTRIBUTION WIDTH 13.4 % (11.5-14.0); WHITE BLOOD COUNT 6.8 10^3/uL (4.0-10.5)
[2017-10-10 06:13] LABS: HEMOGLOBIN 9.2 g/dL (12.0-15.5)
[2017-10-10 06:27] LABS: ANION GAP 9 (5-19); BLOOD UREA NITROGEN 17 mg/dL (7-20); CARBON DIOXIDE 22 mmol/L (22-30); CHLORIDE 110 mmol/L (98-107); GLUCOSE 119 mg/dL (75-110); POTASSIUM 4.2 mmol/L (3.6-5.0); SODIUM 140.5 mmol/L (137-145)
[2017-10-10 06:28] LABS: CALCIUM 7.8 mg/dL (8.4-10.2)
--- NOTE | 2017-10-10 07:16 | PDOC PROGRESS REPORT ---
Subjective Progress Note for:: 10/10/17 Reason For Visit: LEFT INTERTROCHANTERIC FRACTURE 82-year-old white female postop day 1 from an open reduction internal fixation of a left intratrochanteric femur fracture. Patient resting comfortably. Physical Exam Vital Signs: Temp Pulse Resp BP Pulse Ox 36.6 C 61 16 119/54 L 100 10/09/17 23:55 10/09/17 23:55 10/09/17 23:55 10/09/17 23:55 10/09/17 23:55 Intake & Output 10/09/17 10/10/17 10/11/17 06:59 06:59 06:59 Intake Total 2000 Output Total 1000 Balance 1000 General appearance: PRESENT: no acute distress Pulses: PRESENT: +1 pedal pulses bilateral Vascular exam: PRESENT: normal capillary refill Extremities exam: PRESENT: other - Left lower extremity dressings clean dry and intact. Leg lengths are equal. Results Laboratory Results: 10/10/17 05:46 10/10/17 05:46 10/09/17 10/10/17 10/10/17 10:50 05:46 05:46 WBC 6.8 RBC 2.89 L Hgb 9.2 L D Hct 26.1 L MCV 91 MCH 31.7 MCHC 35.0 RDW 13.4 Plt Count 187 Sodium 140.5 Potassium 4.2 Chloride 110 H Carbon Dioxide 22 Anion Gap 9 BUN 17 Creatinine 0.52 Est GFR ( Amer) > 60 Est GFR (Non-Af Amer) > 60 Glucose 119 H Calcium 7.8 L Blood Type A POSITIVE Antibody Screen NEGATIVE 10/09/17 10/09/17 10:50 10:50 Creatine Kinase 113 CK-MB (CK-2) 1.14 Troponin I < 0.012 Impressions: Chest X-Ray 10/09/17 00:00 IMPRESSION: Cardiomegaly. No acute consolidations are identified. Other findings as noted above Hip X-Ray 10/09/17 06:15 IMPRESSION: 1. Acute comminuted mildly displaced intertrochanteric fracture of the left femur. 2010 [employer]- All Rights Reserved Knee X-Ray 10/09/17 06:15 IMPRESSION: No acute fracture or dislocation. 2010 [employer]- All Rights Reserved Status: Imported from PACS Assessment & Plan - Diagnosis (1) Fracture, intertrochanteric, left femur Qualifiers: Encounter type: initial encounter Fracture type: closed Fracture alignment: displaced Qualified Code(s): S72.142A - Displaced intertrochanteric fracture of left femur, initial encounter for closed fracture Is this a current diagnosis for this admission?: Yes Plan: Postop day 1 status post ORIF of a left intratrochanteric femur fracture.. Plan will be for mobilization with physical therapy and weightbearing as tolerated basis. - Time Time Spent with patient: 15-24 minutes Anticipated discharge: Other Within: Other
--- NOTE | 2017-10-10 08:27 | RADIOLOGY REPORT (SQ) ---
EXAM DESCRIPTION: HIP LEFT AP/LATERAL COMPLETED DATE/TIME: 10/09/2017 7:30 pm REASON FOR STUDY: LT HIP NAILING COMPARISON: Plain films of the left hip dated 10/09/2017 FLUOROSCOPY TIME: 2.5 minute 7 images saved to PACS. TECHNIQUE: Intra-operative images acquired during surgical procedure to evaluate progress. NUMBER OF IMAGES: 7 images LIMITATIONS: None. FINDINGS: Fluoroscopic images were obtained during internal fixation of the left hip. Orthopedic na il and intramedullary mare are identified in position. Please refer to the surgeon's operative report for additional information. IMPRESSION: IMAGE(S) OBTAINED DURING PROCEDURE. COMMENT: Quality ID [id number]: Final reports for procedures using fluoroscopy that document radiation exp osure indices, or exposure time and number of fluorographic images (if radiation exposure indices are not available) Please consult full operative report of the attending physician for description of the procedure. TECHNICAL DOCUMENTATION: JOB ID: [id number] [employer]- All Rights Reserved Reading location - IP/workstation name: [email or web address]
--- NOTE | 2017-10-10 08:27 | RADIOLOGY REPORT (SQ) ---
EXAM DESCRIPTION: NO CHG FLUORO COMPLETE DATE/TIME: 10/09/2017 7:30 pm REASON FOR STUDY: LT HIP NAILING FINDINGS: Please see combined report for performance of procedure and radiologic supervision and int erpretation. IMPRESSION: Please see combined report for performance of procedure and radiologic supervision and i nterpretation. Reading location - IP/workstation name: [email or web address]
[2017-10-10] MEDS: FENTANYL CITRATE INJ/PF 100 MCG/2 ML AMPUL IV PRN ×2 (09:34→15:36)
[2017-10-10] MEDS: OXYCODONE HCL IR 5 MG TABLET PO PRN (17:36)
[2017-10-10] MEDS: RIVAROXABAN 10 MG TABLET PO SCH (17:37)
--- NOTE | 2017-10-10 17:40 | PDOC PROGRESS REPORT ---
Subjective Progress Note for:: 10/10/17 Subjective:: 82 y.o. F mechanical fall at home, L intertrochanteric fracture. Now POD#1 L hip arthroplasty. The patient was seen this afternoon on rounds following PT/OT. She is resting comfortably in bed on room air. She is alert and oriented 3, able to answer all questions appropriately. The patient states that she is experiencing minimal postoperative pain. She states she only experiences moderate exacerbations when working with physical therapy. Patient states that the IV fentanyl she has been receiving has worked well for her pain. LLE is warm to touch, limited ROM at this time, palpable DP and PT pulses. Plan to send to Acute Rehab when cleared by Ortho Surgery Reason For Visit: LEFT INTERTROCHANTERIC FRACTURE Physical Exam Vital Signs: Temp Pulse Resp BP Pulse Ox 97.8 F 68 14 122/77 100 10/10/17 11:29 10/10/17 11:29 10/10/17 11:29 10/10/17 11:29 10/10/17 11:29 Intake & Output 10/09/17 10/10/17 10/11/17 06:59 06:59 06:59 Intake Total 2000 100 Output Total 1000 Balance 1000 100 General appearance: PRESENT: no acute distress, well-developed, well-nourished Head exam: PRESENT: atraumatic, normocephalic Eye exam: PRESENT: conjunctiva pink, EOMI, PERRLA. ABSENT: scleral icterus Ear exam: PRESENT: normal external ear exam Mouth exam: PRESENT: moist, tongue midline Neck exam: ABSENT: carotid bruit, JVD, lymphadenopathy, thyromegaly Respiratory exam: PRESENT: clear to auscultation donna. ABSENT: rales, rhonchi, wheezes Cardiovascular exam: PRESENT: RRR. ABSENT: diastolic murmur, rubs, systolic murmur Pulses: PRESENT: normal dorsalis pedis pul Vascular exam: PRESENT: normal capillary refill GI/Abdominal exam: PRESENT: normal bowel sounds, soft. ABSENT: distended, guarding, mass, organolmegaly, rebound, tenderness Rectal exam: PRESENT: deferred Extremities exam: ABSENT: calf tenderness, full ROM Musculoskeletal exam: PRESENT: ambulatory - with assistance. ABSENT: full ROM Neurological exam: PRESENT: alert, awake, oriented to person, oriented to place , oriented to time, oriented to situation Psychiatric exam: PRESENT: appropriate affect, normal mood Skin exam: PRESENT: dry, intact, warm, other - BRUISING AROUND SURGICAL SITE, L LATERAL BUTTOCKS. ABSENT: cyanosis, rash Results Laboratory Results: 10/10/17 05:46 10/10/17 05:46 10/10/17 10/10/17 05:46 05:46 WBC 6.8 RBC 2.89 L Hgb 9.2 L D Hct 26.1 L MCV 91 MCH 31.7 MCHC 35.0 RDW 13.4 Plt Count 187 Sodium 140.5 Potassium 4.2 Chloride 110 H Carbon Dioxide 22 Anion Gap 9 BUN 17 Creatinine 0.52 Est GFR ( Amer) > 60 Est GFR (Non-Af Amer) > 60 Glucose 119 H Calcium 7.8 L 10/09/17 10/09/17 10:50 10:50 Creatine Kinase 113 CK-MB (CK-2) 1.14 Troponin I < 0.012 Impressions: Chest X-Ray 10/09/17 00:00 IMPRESSION: Cardiomegaly. No acute consolidations are identified. Other findings as noted above Fluoroscopy 10/09/17 00:00 IMPRESSION: Please see combined report for performance of procedure and radiologic supervision and interpretation. Hip X-Ray 10/09/17 06:15 IMPRESSION: 1. Acute comminuted mildly displaced intertrochanteric fracture of the left femur. 2010 [employer]- All Rights Reserved Knee X-Ray 10/09/17 06:15 IMPRESSION: No acute fracture or dislocation. 2010 [employer]- All Rights Reserved Status: Imported from PACS Assessment & Plan - Diagnosis (1) Fracture, intertrochanteric, left femur Qualifiers: Encounter type: initial encounter Fracture type: closed Fracture alignment: displaced Qualified Code(s): S72.142A - Displaced intertrochanteric fracture of left femur, initial encounter for closed fracture Is this a current diagnosis for this admission?: Yes Plan: POD#1 L hip arthroplasty. No post-op complications Mechanical fall at home. Patient denies LOC. X-ray left hip demonstrates acute comminuted mildly displaced intertrochanteric fracture of the left femur As needed fentanyl for pain control (allergy to morphine) Will require PT/OT and acute rehab following surgery (2) HLD (hyperlipidemia) Qualifiers: Hyperlipidemia type: unspecified Qualified Code(s): E78.5 - Hyperlipidemia , unspecified Is this a current diagnosis for this admission?: Yes Plan: History of hyperlipidemia Continue home dose atorvastatin (3) Cardiomegaly Is this a current diagnosis for this admission?: Yes Plan: Patient denies history of heart disease Cardiomegaly seen on CXR ECHOcardioogram demonstrates normal LVEF, mild LVH, trace MR and TR, no pericardial effusion - Time Time Spent with patient: 15-24 minutes Medications reviewed and adjusted accordingly: Yes Anticipated discharge: Acute Rehab - Inpatient Certification Based on my medical assessment, after consideration of the patient's comorbidities, presenting symptoms, or acuity I expect that the services needed warrant INPATIENT care.: Yes I certify that my determination is in accordance with my understanding of Medicare's requirements for reasonable and necessary INPATIENT services [42 CFR 412.3e].: Yes Medical Necessity: Risk of Complication if Not Cared For in Hospital - Plan Summary Plan Summary: CONTINUE PT/OT. WILL REQUIRE ACUTE REHAB. DISCHARGE PLANNING AWARE
[2017-10-11] MEDS: OXYCODONE HCL IR 5 MG TABLET PO PRN (00:16)
[2017-10-11 06:06] LABS: MEAN CORPUSCULAR HGB CONC 34.5 g/dL (32.0-36.0); MEAN CORPUSCULAR VOLUME 90 fl (80-97); PLATELET COUNT 177 10^3/uL (150-450); RED CELL DISTRIBUTION WIDTH 13.7 % (11.5-14.0); WHITE BLOOD COUNT 7.3 10^3/uL (4.0-10.5)
[2017-10-11] MEDS: FENTANYL CITRATE INJ/PF 100 MCG/2 ML AMPUL IV PRN (09:32)
--- NOTE | 2017-10-11 18:30 | PDOC PROGRESS REPORT ---
Subjective Progress Note for:: 10/11/17 Subjective:: 82 y.o. F mechanical fall at home, L intertrochanteric fracture. Now POD#1 L hip arthroplasty. The patient was seen this afternoon on rounds following PT/OT. She is resting comfortably in bed on room air. She is alert and oriented 3, able to answer all questions appropriately. The patient states that she is experiencing minimal postoperative pain. She states she only experiences moderate exacerbations when working with physical therapy. Patient states that the IV fentanyl she has been receiving has worked well for her pain. LLE is warm to touch, limited ROM at this time, palpable DP and PT pulses. Plan to send to Acute Rehab when cleared by Ortho Surgery Reason For Visit: LEFT INTERTROCHANTERIC FRACTURE Physical Exam Vital Signs: Temp Pulse Resp BP Pulse Ox 98.5 F 80 16 135/60 H 99 10/11/17 16:00 10/11/17 16:00 10/11/17 16:00 10/11/17 16:00 10/11/17 16:00 Intake & Output 10/10/17 10/11/17 10/12/17 06:59 06:59 06:59 Intake Total 2000 200 440 Output Total 1000 Balance 1000 200 440 General appearance: PRESENT: no acute distress, well-developed, well-nourished Head exam: PRESENT: atraumatic, normocephalic Eye exam: PRESENT: conjunctiva pink, EOMI, PERRLA. ABSENT: scleral icterus Ear exam: PRESENT: normal external ear exam Mouth exam: PRESENT: moist, tongue midline Neck exam: ABSENT: carotid bruit, JVD, lymphadenopathy, thyromegaly Respiratory exam: PRESENT: clear to auscultation donna. ABSENT: rales, rhonchi, wheezes Cardiovascular exam: PRESENT: RRR. ABSENT: diastolic murmur, rubs, systolic murmur Pulses: PRESENT: normal dorsalis pedis pul Vascular exam: PRESENT: normal capillary refill GI/Abdominal exam: PRESENT: normal bowel sounds, soft. ABSENT: distended, guarding, mass, organolmegaly, rebound, tenderness Rectal exam: PRESENT: deferred Extremities exam: ABSENT: calf tenderness, clubbing, full ROM, pedal edema Musculoskeletal exam: PRESENT: ambulatory - WITH ASSISTANCE. ABSENT: full ROM Neurological exam: PRESENT: alert, awake, oriented to person, oriented to place , oriented to time, oriented to situation Psychiatric exam: PRESENT: appropriate affect, normal mood Skin exam: PRESENT: dry, intact, warm Results Laboratory Results: 10/11/17 05:54 10/10/17 05:46 10/11/17 05:54 WBC 7.3 RBC 2.90 L Hgb 9.0 L Hct 26.0 L MCV 90 MCH 31.0 MCHC 34.5 RDW 13.7 Plt Count 177 10/09/17 10/09/17 10:50 10:50 Creatine Kinase 113 CK-MB (CK-2) 1.14 Troponin I < 0.012 Impressions: Chest X-Ray 10/09/17 00:00 IMPRESSION: Cardiomegaly. No acute consolidations are identified. Other findings as noted above Fluoroscopy 10/09/17 00:00 IMPRESSION: Please see combined report for performance of procedure and radiologic supervision and interpretation. Hip X-Ray 10/09/17 06:15 IMPRESSION: 1. Acute comminuted mildly displaced intertrochanteric fracture of the left femur. 2010 [email or web address]- All Rights Reserved Knee X-Ray 10/09/17 06:15 IMPRESSION: No acute fracture or dislocation. 2010 [email or web address]- All Rights Reserved Status: Imported from PACS Assessment & Plan - Diagnosis (1) Fracture, intertrochanteric, left femur Qualifiers: Encounter type: initial encounter Fracture type: closed Fracture alignment: displaced Qualified Code(s): S72.142A - Displaced intertrochanteric fracture of left femur, initial encounter for closed fracture Is this a current diagnosis for this admission?: Yes Plan: POD#2 L hip arthroplasty. No post-op complications Mechanical fall at home. Patient denies LOC. X-ray left hip demonstrates acute comminuted mildly displaced intertrochanteric fracture of the left femur As needed fentanyl for pain control (allergy to morphine) Postoperative anticoagulation initiated by orthopedic surgery Will require PT/OT and acute rehab following surgery (2) HLD (hyperlipidemia) Qualifiers: Hyperlipidemia type: unspecified Qualified Code(s): E78.5 - Hyperlipidemia , unspecified Is this a current diagnosis for this admission?: Yes Plan: History of hyperlipidemia Continue home dose atorvastatin (3) Cardiomegaly Is this a current diagnosis for this admission?: Yes Plan: Patient denies history of heart disease Cardiomegaly seen on CXR ECHOcardioogram demonstrates normal LVEF, mild LVH, trace MR and TR, no pericardial effusion - Time Time Spent with patient: 15-24 minutes Medications reviewed and adjusted accordingly: Yes Anticipated discharge: Acute Rehab Within: within 24 hours - Inpatient Certification Based on my medical assessment, after consideration of the patient's comorbidities, presenting symptoms, or acuity I expect that the services needed warrant INPATIENT care.: Yes I certify that my determination is in accordance with my understanding of Medicare's requirements for reasonable and necessary INPATIENT services [42 CFR 412.3e].: Yes Medical Necessity: Risk of Complication if Not Cared For in Hospital - Plan Summary Plan Summary: Monitor CBC for drop in Hgb overnight. Barring any complications, the patient will likely transfer to acute rehab within 48 hours.
[2017-10-11] MEDS: RIVAROXABAN 10 MG TABLET PO SCH (19:45)
[2017-10-12 05:06] LABS: HEMATOCRIT 25.5 % (36.0-47.0); HEMOGLOBIN 8.9 g/dL (12.0-15.5); MEAN CORPUSCULAR HEMOGLOBIN 31.6 pg (27.0-33.4); MEAN CORPUSCULAR HGB CONC 35.1 g/dL (32.0-36.0); MEAN CORPUSCULAR VOLUME 90 fl (80-97); PLATELET COUNT 183 10^3/uL (150-450); RED BLOOD COUNT 2.83 10^6/uL (3.72-5.28); RED CELL DISTRIBUTION WIDTH 13.6 % (11.5-14.0); WHITE BLOOD COUNT 7.9 10^3/uL (4.0-10.5)
--- NOTE | 2017-10-12 07:10 | PDOC PROGRESS REPORT ---
Subjective Progress Note for:: 10/12/17 Subjective:: Patient lying comfortably. Does complain of pain with physical therapy otherwise pain control. Denies chest pain, shortness of breath. Reason For Visit: LEFT INTERTROCHANTERIC FRACTURE Physical Exam Vital Signs: Temp Pulse Resp BP Pulse Ox 98.7 F 79 16 118/51 L 99 10/11/17 19:46 10/11/17 19:46 10/11/17 19:46 10/11/17 19:46 10/11/17 19:46 Intake & Output 10/11/17 10/12/17 10/13/17 06:59 06:59 06:59 Intake Total 200 662 Balance 200 662 Weight 90.5 kg Musculoskeletal exam: PRESENT: other - Left hip: Dressing clean/dry/intact no erythema or drainage. Patient has evidence of ecchymosis along the proximal incision with moderate thigh swelling. Intact plantar flexion/dorsiflexion. No calf tenderness. Cap refill less than 2 seconds. Results Laboratory Results: 10/12/17 04:47 10/10/17 05:46 10/12/17 04:47 WBC 7.9 RBC 2.83 L Hgb 8.9 L Hct 25.5 L MCV 90 MCH 31.6 MCHC 35.1 RDW 13.6 Plt Count 183 10/09/17 10/09/17 10:50 10:50 Creatine Kinase 113 CK-MB (CK-2) 1.14 Troponin I < 0.012 Impressions: Chest X-Ray 10/09/17 00:00 IMPRESSION: Cardiomegaly. No acute consolidations are identified. Other findings as noted above Fluoroscopy 10/09/17 00:00 IMPRESSION: Please see combined report for performance of procedure and radiologic supervision and interpretation. Hip X-Ray 10/09/17 06:15 IMPRESSION: 1. Acute comminuted mildly displaced intertrochanteric fracture of the left femur. 2010 [employer]- All Rights Reserved Knee X-Ray 10/09/17 06:15 IMPRESSION: No acute fracture or dislocation. 2010 [employer]- All Rights Reserved Assessment & Plan - Diagnosis (1) Fracture, intertrochanteric, left femur Qualifiers: Encounter type: initial encounter Fracture type: closed Fracture alignment: displaced Qualified Code(s): S72.142A - Displaced intertrochanteric fracture of left femur, initial encounter for closed fracture Is this a current diagnosis for this admission?: Yes Plan: Postop day #3 status post left hip cephalo-medullary nail 1. Pain control 2. Physical therapy weightbearing as tolerated 3. Acute blood loss anemia current hematocrit stable at 25.5 4. Xarelto for DVT prophylaxis 5. Discharge planning to half-way facility when bed available
[2017-10-12] MEDS: FENTANYL CITRATE INJ/PF 100 MCG/2 ML AMPUL IV PRN ×2 (08:52→22:54)
--- NOTE | 2017-10-12 12:12 | PDOC PROGRESS REPORT ---
Subjective Progress Note for:: 10/12/17 Subjective:: 82 y.o. F mechanical fall at home, L intertrochanteric fracture. Now POD#3 L hip arthroplasty. The patient was seen this afternoon on rounds following PT/OT. She is resting comfortably in bedside recliner. She is alert and oriented 3, able to answer all questions appropriately. The patient states that she is experiencing minimal postoperative pain. She states she only experiences moderate exacerbations when working with physical therapy. LLE is warm to touch, limited ROM at this time, palpable DP and PT pulses. Hgb continues to drift, 11.9->9.2->9.0->8.9. Plan to send to acute rehab when Hgb stabilizes. Reason For Visit: LEFT INTERTROCHANTERIC FRACTURE Physical Exam Vital Signs: Temp Pulse Resp BP Pulse Ox 98.7 F 65 12 131/55 H 100 10/12/17 07:56 10/12/17 07:56 10/12/17 07:56 10/12/17 07:56 10/12/17 07:56 Intake & Output 10/11/17 10/12/17 10/13/17 06:59 06:59 06:59 Intake Total 200 662 Balance 200 662 Weight 90.5 kg General appearance: PRESENT: no acute distress Head exam: PRESENT: atraumatic Eye exam: PRESENT: conjunctiva pink, PERRLA Mouth exam: PRESENT: moist Neck exam: PRESENT: full ROM Respiratory exam: PRESENT: clear to auscultation donna, symmetrical, unlabored Cardiovascular exam: PRESENT: +S1, +S2 Pulses: PRESENT: normal radial pulses, normal dorsalis pedis pul GI/Abdominal exam: PRESENT: soft. ABSENT: tenderness Rectal exam: PRESENT: deferred Extremities exam: PRESENT: full ROM. ABSENT: pedal edema Musculoskeletal exam: PRESENT: ambulatory - WITH ASSISTANCE, full ROM Neurological exam: PRESENT: alert, awake, oriented to person, oriented to place , oriented to time, oriented to situation Psychiatric exam: PRESENT: appropriate affect Skin exam: PRESENT: dry, intact, warm Results Laboratory Results: 10/12/17 04:47 10/10/17 05:46 10/12/17 04:47 WBC 7.9 RBC 2.83 L Hgb 8.9 L Hct 25.5 L MCV 90 MCH 31.6 MCHC 35.1 RDW 13.6 Plt Count 183 10/09/17 10/09/17 10:50 10:50 Creatine Kinase 113 CK-MB (CK-2) 1.14 Troponin I < 0.012 Impressions: Chest X-Ray 10/09/17 00:00 IMPRESSION: Cardiomegaly. No acute consolidations are identified. Other findings as noted above Fluoroscopy 10/09/17 00:00 IMPRESSION: Please see combined report for performance of procedure and radiologic supervision and interpretation. Hip X-Ray 10/09/17 06:15 IMPRESSION: 1. Acute comminuted mildly displaced intertrochanteric fracture of the left femur. 2010 [employer]- All Rights Reserved Knee X-Ray 10/09/17 06:15 IMPRESSION: No acute fracture or dislocation. 2010 [employer]- All Rights Reserved Status: Imported from PACS Assessment & Plan - Diagnosis (1) Fracture, intertrochanteric, left femur Qualifiers: Encounter type: initial encounter Fracture type: closed Fracture alignment: displaced Qualified Code(s): S72.142A - Displaced intertrochanteric fracture of left femur, initial encounter for closed fracture Is this a current diagnosis for this admission?: Yes Plan: POD#3 L hip arthroplasty. No post-op complications Mechanical fall at home. Patient denies LOC. X-ray left hip demonstrates acute comminuted mildly displaced intertrochanteric fracture of the left femur As needed fentanyl for pain control (allergy to morphine) Postoperative anticoagulation initiated by orthopedic surgery Will require PT/OT and acute rehab following surgery (2) HLD (hyperlipidemia) Qualifiers: Hyperlipidemia type: unspecified Qualified Code(s): E78.5 - Hyperlipidemia , unspecified Is this a current diagnosis for this admission?: Yes Plan: History of hyperlipidemia Continue home dose atorvastatin (3) Cardiomegaly Is this a current diagnosis for this admission?: Yes Plan: Patient denies history of heart disease Cardiomegaly seen on CXR ECHOcardioogram demonstrates normal LVEF, mild LVH, trace MR and TR, no pericardial effusion (4) Anemia Qualifiers: Anemia type: other cause Is this a current diagnosis for this admission?: Yes Plan: Secondary to recent surgery and initiation of anticoagulation Hgb continues to drop 11.9->9.2->9.0->8.9 - Time Time Spent with patient: 15-24 minutes Medications reviewed and adjusted accordingly: Yes Anticipated discharge: Home - Inpatient Certification Based on my medical assessment, after consideration of the patient's comorbidities, presenting symptoms, or acuity I expect that the services needed warrant INPATIENT care.: Yes I certify that my determination is in accordance with my understanding of Medicare's requirements for reasonable and necessary INPATIENT services [42 CFR 412.3e].: Yes Medical Necessity: Risk of Complication if Not Cared For in Hospital - Plan Summary Plan Summary: CONTINUE TO TREND HGB
[2017-10-12] MEDS: RIVAROXABAN 10 MG TABLET PO SCH (18:14)
[2017-10-13 07:42] LABS: HEMOGLOBIN 8.7 g/dL (12.0-15.5); MEAN CORPUSCULAR HEMOGLOBIN 31.2 pg (27.0-33.4); MEAN CORPUSCULAR HGB CONC 34.8 g/dL (32.0-36.0); MEAN CORPUSCULAR VOLUME 90 fl (80-97); RED BLOOD COUNT 2.79 10^6/uL (3.72-5.28); WHITE BLOOD COUNT 9.9 10^3/uL (4.0-10.5)
[2017-10-13 08:04] LABS: PLATELET COUNT 176 10^3/uL (150-450)
--- NOTE | 2017-10-13 08:18 | PDOC TRANSFER SUMMARY ---
General - Admit/Disc Date/PCP Admission Date/Primary Care Provider: 10/09/17 09:03 JOSEPH SUMMERS MD Discharge Date: 10/13/17 - Discharge Diagnosis (1) Fracture, intertrochanteric, left femur Is this a current diagnosis for this admission?: Yes - Additional Information Resuscitation Status: Full Code Discharge Diet: As Tolerated Discharge Activity: No Driving, No Lifting Over 10 Pounds, No Lifting/Push/ Pulling Home Medications: Multivitamins W-Minerals/Lut [Centrum Silver Tablet] 1 each PO DAILY 03/03/11 Simvastatin [Zocor] 20 mg PO QHS 03/03/11 Cetirizine HCl [Zyrtec] 10 mg PO DAILY 10/09/17 Naproxen Sod/Diphenhydramine [Aleve Pm Caplet] 1 each PO HSP PRN 10/09/17 Omeprazole 20 mg PO DAILY 10/09/17 Tramadol HCl [Ultram 50 mg Tablet] 50 mg PO Q8HP PRN 10/09/17 Vit A/C/E/Zinc/Selenium/Copper [Vision Formula Tablet] 1 each PO DAILY 10/09/17 History of Present Illness Admission Date/PCP: 10/09/17 09:03 JOSEPH SUMMERS MD History of Present Illness: ROBERT DESAI is a 82 year old female Patient is a 82-year-old white female who fell and sustained a left hip injury. She is unable to weight-bear. She is brought to the emergency room. A left intratrochanteric femur fracture was identified. The patient is admitted to the orthopedic service for fracture management. Hospital Course Hospital Course: Patient is admitted to the orthopedic service and subsequent taken the operating room for an open reduction internal fixation of a left intratrochanteric femur fracture. Surgical course is uncomplicated. Patient's mobilized with physical therapy and weightbearing as tolerated basis postoperatively. Patient makes slow but limited progress in this regard. Physical Exam Vital Signs: Temp Pulse Resp BP Pulse Ox 36.7 C 64 17 128/49 H 100 10/13/17 08:00 10/13/17 08:00 10/13/17 08:00 10/13/17 08:00 10/13/17 08:00 Intake & Output 10/12/17 10/13/17 10/14/17 06:59 06:59 06:59 Intake Total 662 790 Output Total 150 Balance 662 640 Weight 90.5 kg 92 kg General appearance: PRESENT: no acute distress, mild distress Head exam: PRESENT: normocephalic Respiratory exam: PRESENT: unlabored Cardiovascular exam: PRESENT: RRR Pulses: PRESENT: +1 pedal pulses bilateral Vascular exam: PRESENT: normal capillary refill GI/Abdominal exam: PRESENT: soft Rectal exam: PRESENT: deferred Musculoskeletal exam: PRESENT: other - Left lower extremity dressings are clean dry and intact. There is a considerable amount of ecchymosis about the buttock. Leg lengths are equal. Distal neurovascular examination is intact. Neurological exam: PRESENT: alert, awake, oriented to person, oriented to place , oriented to time, oriented to situation. ABSENT: motor sensory deficit Psychiatric exam: PRESENT: appropriate affect, normal mood. ABSENT: homicidal ideation, suicidal ideation Skin exam: PRESENT: dry, intact, warm. ABSENT: cyanosis, rash Results Laboratory Results: 10/13/17 06:59 10/10/17 05:46 10/13/17 06:59 WBC 9.9 RBC 2.79 L Hgb 8.7 L Hct 25.0 L MCV 90 MCH 31.2 MCHC 34.8 RDW 14.0 Plt Count 176 10/09/17 10/09/17 10:50 10:50 Creatine Kinase 113 CK-MB (CK-2) 1.14 Troponin I < 0.012 Impressions: Chest X-Ray 10/09/17 00:00 IMPRESSION: Cardiomegaly. No acute consolidations are identified. Other findings as noted above Fluoroscopy 10/09/17 00:00 IMPRESSION: Please see combined report for performance of procedure and radiologic supervision and interpretation. Hip X-Ray 10/09/17 06:15 IMPRESSION: 1. Acute comminuted mildly displaced intertrochanteric fracture of the left femur. 2010 [employer]- All Rights Reserved Knee X-Ray 10/09/17 06:15 IMPRESSION: No acute fracture or dislocation. 2010 [employer]- All Rights Reserved Status: Imported from PACS Transfer Plan - Disposition Transfer Plan: Patient to be transferred to a longterm facility for ongoing physical therapy and weightbearing as tolerated basis as well as longterm care. Qualifiers - * PATIENT BEING DISCHARGED WITH ANY OF THE FOLLOWING DIAGNOSIS: No VTE patient discharged on overlapping Therapy?: Yes Plan Discharge Plan: Patient can follow-up with Dr. reed in the [facility] for surgery in 2 weeks for staple removal.
[2017-10-13] MEDS: OXYCODONE HCL IR 5 MG TABLET PO PRN (12:11)
[2017-10-13 13:06] VITALS: BP 132/41
--- NOTE | 2017-10-13 13:13 | PDOC TRANSFER SUMMARY ---
General Admission Date/PCP: 10/09/17 09:03 JOSEPH SUMMERS MD Admission Date: 10/09/17 Transfer Date: 10/13/17 Resuscitation Status: Full Code - Transfer Diagnosis (1) Fracture, intertrochanteric, left femur Is this a current diagnosis for this admission?: Yes (2) HLD (hyperlipidemia) Is this a current diagnosis for this admission?: Yes (3) Cardiomegaly Is this a current diagnosis for this admission?: Yes (4) Anemia Is this a current diagnosis for this admission?: Yes - Transfer Medications Home Medications: Multivitamins W-Minerals/Lut [Centrum Silver Tablet] 1 each PO DAILY 03/03/11 Simvastatin [Zocor 20 mg Tablet] 20 mg PO QHS 03/03/11 Cetirizine HCl [Zyrtec] 10 mg PO DAILY 10/09/17 Naproxen Sod/Diphenhydramine [Aleve Pm Caplet] 1 each PO HSP PRN 10/09/17 Omeprazole 20 mg PO DAILY 10/09/17 Tramadol HCl [Ultram 50 mg Tablet] 50 mg PO Q8HP PRN 10/09/17 Vit A/C/E/Zinc/Selenium/Copper [Vision Formula Tablet] 1 each PO DAILY 10/09/17 Transfer Medications: Current Medications Dextrose (Dextrose Inj 50% Syringe (25 Gm/50 Ml)) 12.5 gm IV PRN PRN; Protocol PRN Reason: FOR BG 50-69 IN ALERT PATIENT Stop: 11/08/17 09:58 Dextrose (Dextrose Inj 50% Syringe (25 Gm/50 Ml)) 25 gm IV PRN PRN; Protocol PRN Reason: See Label Comments Stop: 11/08/17 09:58 Diphenhydramine HCl (Benadryl Inj 50 Mg/1 Ml Vial) 25 mg IV Q6HP PRN PRN Reason: FOR ITCHING Stop: 11/08/17 19:14 Fentanyl Citrate (Sublimaze Inj/Pf 100 Mcg/2 Ml Ampule) 50 mcg IV Q4HP PRN PRN Reason: FOR PAIN Stop: 10/16/17 14:47 Last Admin: 10/12/17 22:54 Dose: 50 mcg Glucagon (Glucagen Inj 1 Mg Vial) 1 mg SUBCUT PRN PRN; Protocol PRN Reason: Evaluate for BG < 70 Stop: 11/08/17 09:58 Glucose (Glutose 40% Gel 15 Gm Tube) 15 gm PO PRN PRN; Protocol PRN Reason: For BG 50-69 in Alert Patient Stop: 11/08/17 09:58 Glucose (Glutose 40% Gel 15 Gm Tube) 30 gm PO PRN PRN; Protocol PRN Reason: FOR BG < 50 IN ALERT PATIENT Stop: 11/08/17 09:58 Lactated Ringer's (Lactated Ringers 1000 Ml Iv Soln) 1,000 mls @ 150 mls/hr IV CONTINUOUS PRN PRN Reason: THIS MED IS NOT "PRN" Stop: 11/08/17 09:58 Oxycodone HCl (Oxy-Ir 5 Mg Tablet) 5 mg PO Q6HP PRN PRN Reason: FOR PAIN SCALE OF 1 Stop: 10/16/17 19:14 Last Admin: 10/13/17 12:11 Dose: 5 mg Rivaroxaban (Xarelto 10 Mg Tablet) 10 mg PO WSUPPER RAE Stop: 11/09/17 16:59 Last Admin: 10/12/17 18:14 Dose: 10 mg Sodium Chloride (Saline Flush 2.5 Ml Monoject Prefil Syrin) 2.5 ml IV Q8 RAE Stop: 11/08/17 13:59 Last Admin: 10/13/17 06:04 Dose: Not Given - Allergies Allergies/Adverse Reactions: aspirin [Aspirin] Allergy (Mild, Verified 08/01/15 12:34) Rash morphine [Morphine] Allergy (Mild, Verified 08/01/15 12:34) N/V Penicillins Allergy (Mild, Verified 08/01/15 12:34) Hives - Diet/Activity Discharge Diet: As Tolerated Hospital Course Hospital Course: ROBERT DESAI is a 82 year old female with a PMH of HLD and GERD. She presented to the emergency department 10/09 following a mechanical fall. Patient reports she was experiencing a LLE cramp last night. She was attempting to "walk it off" when she experienced a mechanical fall and landed on her left hip. She denies head trauma or LOC. Denies dizziness prior to falling. The patient was unable to stand after she fell, and she remained on the ground for an unknown amount of time (approximately 6 hours). She was able to crawl to the phone and call her daughter, who then called EMS. Upon presentation to [facility] ED the patient's complained of LLE pain. X-ray of the left hip demonstrates acute comminuted mildly displaced intertrochanteric fracture of the left femur. Orthopedic surgery was consulted. L hip arthroplasty was preformed by Dr. Renteria. No intraop complications. Postoperatively, the patient has tolerated PT/OT very well and only requires minimal doses of pain medication. Mild drop in Hgb from 11->8.7 but vital signs have all remained stable. BUN 17, no concern for internal GI bleeding. Additionally, no evidence of other active bleeding. The patient has been deemed safe to transfer to rehab facility by Ortho and Hospitalist. She will need to follow up with Dr. Patel in 2 weeks. Additionally, the patient will need to continue taking low dose xarelto for DVT prophylaxis for 1 month. Physical Exam Vital Signs: Temp Pulse Resp BP Pulse Ox 98.1 F 64 17 128/49 H 100 10/13/17 08:00 10/13/17 08:00 10/13/17 08:00 10/13/17 08:00 10/13/17 08:00 Intake & Output 10/12/17 10/13/17 10/14/17 06:59 06:59 06:59 Intake Total 662 790 Output Total 150 Balance 662 640 Weight 90.5 kg 92 kg Results Laboratory Results: 10/13/17 06:59 10/10/17 05:46 10/13/17 06:59 WBC 9.9 RBC 2.79 L Hgb 8.7 L Hct 25.0 L MCV 90 MCH 31.2 MCHC 34.8 RDW 14.0 Plt Count 176 10/09/17 10/09/17 10:50 10:50 Creatine Kinase 113 CK-MB (CK-2) 1.14 Troponin I < 0.012 Impressions: Chest X-Ray 10/09/17 00:00 IMPRESSION: Cardiomegaly. No acute consolidations are identified. Other findings as noted above Fluoroscopy 10/09/17 00:00 IMPRESSION: Please see combined report for performance of procedure and radiologic supervision and interpretation. Hip X-Ray 10/09/17 06:15 IMPRESSION: 1. Acute comminuted mildly displaced intertrochanteric fracture of the left femur. 2010 [employer]- All Rights Reserved Knee X-Ray 10/09/17 06:15 IMPRESSION: No acute fracture or dislocation. 2010 [employer]- All Rights Reserved Plan Discharge Plan: TRANSFER TO ACUTE REHAB. DAILY PHYSICAL THERAPY. FOLLOW UP WITH ORTHO IN 2 WEEKS. XARELTO FOR 1 MONTH FOR DVT PROPHYLAXIS. Time Spent: Less than 30 Minutes
== END 2017-10-13 14:15 | DRG 482 ==
LOC: ER 05:55 → UNDOADMIN 09:03 → EH 09:03 → 4S 13:59
PROVIDERS: ADMIT Orthopaedic Surgery; ATTEND Internal Medicine
PROC: 0QS736Z Reposition Left Upper Femur with Intramedullary Internal Fixation Device, Percutaneous Approach (ICD-10-PCS; principal; 2017-10-09 17:45)
DX: S72.142A Displaced intertrochanteric fracture of left femur, initial encounter for closed fracture (principal); W01.0XXA Fall on same level from slipping, tripping and stumbling without subsequent striking against object, initial encounter; E78.00 Pure hypercholesterolemia, unspecified; D64.89 Other specified anemias; I51.7 Cardiomegaly; K21.9 Gastro-esophageal reflux disease without esophagitis; M19.90 Unspecified osteoarthritis, unspecified site; M81.0 Age-related osteoporosis without current pathological fracture; Y92.019 Unspecified place in single-family (private) house as the place of occurrence of the external cause; Z96.651 Presence of right artificial knee joint; Z79.899 Other long term (current) drug therapy; Z88.6 Allergy status to analgesic agent; Z88.0 Allergy status to penicillin; Z90.49 Acquired absence of other specified parts of digestive tract; Z90.710 Acquired absence of both cervix and uterus; Z98.84 Bariatric surgery status; Z87.891 Personal history of nicotine dependence
CPT/HCPCS: 01230; 36415; 71045; 80048; 80053; 82550; 82553; 83880; 84484; 85025; 85027; 85610; 85730; 86850; 86900; 86901; 93005; 93010; 93306; 94799; 96374; 99285; C1713; C1769; G8978-GP; G8979-GP; G8987-GO; G8988-GO; J0131; J0330; J1170; J2250; J2704; J3010; J3490

== ENCOUNTER → 2018-09-26 | Outpatient (CLI) | payer MEDICARE ==
--- NOTE | 2018-09-26 11:20 | WOMENS IMAGING REPORT ---
EXAM DESCRIPTION: 3D SCREENING MAMMO BILAT COMPLETED DATE/TIME: 09/26/2018 10:20 am REASON FOR STUDY: Z12.31 ROUTINE 3D BILATERAL SCREENING Z12.31 ENCNTR SCREEN MAMMOGRAM FOR MALIGNAN T NEOPLASM OF KELLEY COMPARISON: [id number] EXAM PARAMETERS: Views: Standard craniocaudal and mediolateral oblique views of each breast recorded using digital acquisition and breast tomosynthesis. Read with the assistance of CAD. .[facility] - [employer] Version 9.2 LIMITATIONS: None. FINDINGS: No suspicious masses, suspicious calcifications or architectural distortion. No areas of c oncern. IMPRESSION: NEGATIVE MAMMOGRAM. BIRADS 1. BREAST DENSITY: a. The breasts are almost entirely fatty. BIRAD: ASSESSMENT: 1 NEGATIVE RECOMMENDATION: ROUTINE SCREENING COMMENT: The patient has been notified of the results by letter per [place] requirements. Additional no tification policies are in place for contacting patient with suspicious or incomplete findings. Quality ID #225: The [employer] recommends an annual screening mammogram for women aged 40 years or over. This facility utilizes a reminder system to ensure that all patients receive reminder letters, and/or direct phone calls for appointments. This includes reminders for routine scr eening mammograms, diagnostic mammograms, or other Breast Imaging Interventions when appropriate. Th is patient will be placed in the appropriate reminder system. TECHNICAL DOCUMENTATION: FINDING NUMBER: (1) ASSESSMENT: (1) JOB ID: [id number] [employer]- All Rights Reserved Reading location - IP/workstation name: [email or web address]
== END ==
LOC: WI 09:47
PROVIDERS: ATTEND Internal Medicine
DX: Z12.31 Encounter for screening mammogram for malignant neoplasm of breast (principal)
CPT/HCPCS: 77063; 77067

== ENCOUNTER → 2019-10-27 | Outpatient (CLI) | payer MEDICARE ==
--- NOTE | 2019-10-27 14:32 | WOMENS IMAGING REPORT ---
EXAM DESCRIPTION: BONE DENSITY HIP/SPINE IMAGES COMPLETED DATE/TIME: 10/27/2019 2:10 pm REASON FOR STUDY: M81.0 AGE-RELATED OSTEOPOROSIS WITHOUT CURRENT PATHOLOGICAL FRACTURE Z12.31 ENCNT R SCREEN MAMMOGRAM FOR MALIGNANT NEOPLASM OF KELLEY M81.0 AGE-RELATED OSTEOPOROSIS W/O CURRENT PATHOLOG ICAL FRAC COMPARISON: 08/23/2017 TECHNIQUE: Dual-Energy X-ray Absorptiometry (DEXA) of the AP Spine and Hip. LIMITATIONS: None. FINDINGS: LUMBAR SPINE: The bone mineral density (BMD) measured from L1-L4 in the AP projection correlates with a T-score of -1.1, which is osteopenia as defined by the World Health Organization. BMD Change vs Baseline: 3.1% increased since baseline. BMD change versus previous: 13.7% increase compared to previous. HIP: The bone mineral density (BMD) measured in the right hip correlates with a T-score of -1.9, which is osteopenia as defined by the World Health Organization. BMD Change vs Baseline: N/A 10 year Fracture Risk Assessment: Major Osteoporotic Fracture: 14% Hip Fracture: 6.4% IMPRESSION: 1. LUMBAR SPINE WHO CLASSIFICATION: OSTEOPENIA. 2. HIP WHO CLASSIFICATION: OSTEOPENIA. OVERALL ASSESSMENT: WHO CLASSIFICATION: OSTEOPENIA. COMMENT: The World Health Organization defines low BMD as follows: T-score: Normal: At or above -1.0 Osteopenia: Between -1.0 and -2.5 Osteoporosis: At or below -2.5 without fractures Established osteoporosis: At or below -2.5 with fractures In general, you may wish to consider: Diagnosis Treatment Follow-up DEXA Normal BMD Prevention 2-3 years Osteopenia Prevention/Therapy 1-2 years Osteoporosis Therapy Yearly TECHNICAL DOCUMENTATION: JOB ID: [id number] 2010 [employer]- All Rights Reserved Reading location - IP/workstation name: [email or web address] [email or web address]
--- NOTE | 2019-10-28 08:44 | WOMENS IMAGING REPORT ---
EXAM DESCRIPTION: 3D SCREENING MAMMO BILAT IMAGES COMPLETED DATE/TIME: 10/27/2019 2:10 pm REASON FOR STUDY: Z12.31 ENCOUNTER FOR SCREENING MAMMOGRAM FOR MALIGNANT NEOPLASM OF BREAST Z12.31 ENCNTR SCREEN MAMMOGRAM FOR MALIGNANT NEOPLASM OF KELLEY M81.0 AGE-RELATED OSTEOPOROSIS W/O CURRENT PAT HOLOGICAL FRA COMPARISON: 2015 to 2018 EXAM PARAMETERS: Views: Standard craniocaudal and mediolateral oblique views of each breast recorded using digital acquisition and breast tomosynthesis. Read with the assistance of CAD. .[facility] - [employer] Version 9.2 LIMITATIONS: None. FINDINGS: No suspicious masses, suspicious calcifications or architectural distortion. No areas of c oncern. IMPRESSION: NEGATIVE MAMMOGRAM. BIRADS 1. BREAST DENSITY: b. There are scattered areas of fibroglandular density. BIRAD: ASSESSMENT: 1 NEGATIVE RECOMMENDATION: ROUTINE SCREENING COMMENT: The patient has been notified of the results by letter per MQSA requirements. Additional no tification policies are in place for contacting patient with suspicious or incomplete findings. Quality ID #225: The [employer] recommends an annual screening mammogram for women aged 40 years or over. This facility utilizes a reminder system to ensure that all patients receive reminder letters, and/or direct phone calls for appointments. This includes reminders for routine scr eening mammograms, diagnostic mammograms, or other Breast Imaging Interventions when appropriate. Th is patient will be placed in the appropriate reminder system. TECHNICAL DOCUMENTATION: FINDING NUMBER: (1) ASSESSMENT: (1) JOB ID: [id number] 2010 [employer]- All Rights Reserved Reading location - IP/workstation name: [email or web address]
== END ==
LOC: WI 13:12
PROVIDERS: ATTEND Internal Medicine
DX: Z12.31 Encounter for screening mammogram for malignant neoplasm of breast (principal); M81.0 Age-related osteoporosis without current pathological fracture
CPT/HCPCS: 77063; 77067; 77080